=== PATIENT | female | born 1985 | race Caucasian/White ===

== ENCOUNTER → 2021-03-14 00:17 | Outpatient (CLI) | payer OTHER, SELFPAY ==
[2021-03-14 18:07] LABS: SARS-CoV-2 RNA PCR Negative
== END ==
PROVIDERS: Visit Provider Obstetrics & Gynecology
DX: Z01.812 Encounter for preprocedural laboratory examination (principal); Z20.822 Contact with and (suspected) exposure to COVID-19
CPT/HCPCS: C9803; U0003; U0005

== ENCOUNTER 2021-03-16 01:57 | Day surgery (SDC) | payer OTHER, SELFPAY ==
[2021-03-06 14:13] VITALS: BMI 32.8
[2021-03-16 11:00] VITALS: BP 158/90; PULSE 97; RESP 16; TEMP 36.8; O2SAT 100
[2021-03-16] MEDS: LACTATED RINGERS 1,000 ML 30 ML IV CONT (11:15)
[2021-03-16] MEDS: ACETAMINOPHEN 500 MG TABLET 1000 MG PO (11:16)
[2021-03-16] MEDS: KETOROLAC 15 MG/ML VIAL (*BKC) IV PUSH (11:16)
[2021-03-16] MEDS: SCOPOLAMINE 1.5 MG PATCH TRANSDERM (11:21)
--- NOTE | 2021-03-16 11:39 | P.PNAN_ITS ---
Anes - Initial Pre Proc Eval Procedure: Operation Date: 03/16/21 12:00 Proposed Procedures p Laparoscopic Bilateral Tubal Ligation - Shantel Babcock MD s Hysteroscopy with Endometrial Ablation with Usha - Shantel Babcock MD Date/Time: 03/16/21 11:39 Surgeon: Shantel Babcock MD Pre Op Diagnosis: desired sterilization,abnormal uterine bleeding Patient Data Age: 35 Gender: F Height: 1.7 m Weight: 93 kg Last Vital Signs Temp 36.8 C 03/16/21 11:00 Pulse 97 03/16/21 11:00 Resp 16 03/16/21 11:00 BP 158/90 H 03/16/21 11:00 Pulse Ox 100 03/16/21 11:00 Allergies Allergy/AdvReac Type Severity Reaction Status Date / Time No Known Allergies Allergy Verified 03/16/21 11:31 Home Medications Medication Instructions Recorded Confirmed Type norethindrone (contraceptive) 0.35 mg PO DAILY 03/06/21 03/16/21 History [Georgette] Patient hx anesthesia problems: none Family hx anesthesia problems: none Results Review: All pre-operative results and documents have been reviewed as part of the pre-operative evaluation. [facility] Past Medical History Medical History Hx of migraines Social History Social History Smoking status: Never smoker Alcohol intake: current Alcohol use details: COUPLE/MONTH Substance use: never Substance use type: does not use Living arrangements: with family Spiritual care concerns: No Anes - Eval Final PreProcedure Day of Procedure 03/16/21 11:39 Patient weight: obese Heart: regular rate and rhythm Lungs: clear to auscultation Airway: Mallampati scale class II Neurological: alert and oriented Last oral intake: >/= 8 hours ASA classification: II Emergent: no Anesthetic plan: proceed Anesthesia type and monitoring: general ETT and standard monitoring Results Review: All pre-operative results and documents have been reviewed as part of the pre-operative evaluation. Informed Consent: The patient's anesthetic plan and its attendant risks and benefits were discussed with the patient/family/POA. Questions were solicited and answers provided to the satisfaction of the patient/family/POA.
--- NOTE | 2021-03-16 12:08 | PM.HPGS ---
History of Present Illness History of Present Illness Consent: Risks, benefits, and alternatives have been discussed and questions answered. Patient agrees to proceed with procedure. Chief complaint: desired sterilization,abnormal uterine bleeding Narrative: Rik Landeros is a 35 year old female here for scheduled surgery. Has AUB and desires sterilization EMB benign. Risk/benefits discussed. Plan to proceed with laparoscopic tubal sterilization and endometrial ablation Review of Systems Review of Systems: All systems reviewed & are unremarkable except as noted in HPI and below Constitutional: Constitutional: Reports no additional constitutional complaints Eyes: Eyes: Reports no additional eye complaints ENT: Reports system reviewed and no additional complaints, except as documented and Reports Normal hearing present Cardiovascular: Cardiovascular: Reports no additional cardiovascular complaints Respiratory: Respiratory: Reports no additional respiratory complaints Gastrointestinal: Gastrointestinal: Reports no additional gastrointestinal complaints Genitourinary: Genitourinary: Reports no additional female genitourinary complaints Musculoskeletal: Musculoskeletal: Reports no additional musculoskeletal complaints Integumentary/Breasts: Skin/Breast: Reports system reviewed and no additional complaints, except as docu PMFSH Past Medical History Medical History Hx of migraines Social History Social History Smoking status: Never smoker Alcohol intake: current Alcohol use details: COUPLE/MONTH Substance use: never Substance use type: does not use Living arrangements: with family Spiritual care concerns: No Meds Home Medications and Allergies Home Medications Medication Instructions Recorded Confirmed Type norethindrone (contraceptive) 0.35 mg PO DAILY 03/06/21 03/16/21 History [Georgette] Allergies Allergy/AdvReac Type Severity Reaction Status Date / Time No Known Allergies Allergy Verified 03/16/21 11:31 Vital Signs Vital Signs - 24 hr 03/16/21 11:00 Temperature 36.8 C Pulse Rate 97 Respiratory Rate 16 Blood Pressure 158/90 H Pulse Oximetry 100 Exam Const: General: cooperative and healthy appearing HENMT: Head: normal to inspection Ears: hearing grossly normal bilaterally General nose exam: Normal external nose present Face and sinus: normal facial exam Eyes: General: appearance normal, both eyes and all related structures Neck: Neck: normal visual inspection Chest: Chest palpation & inspection: normal inspection of the chest Resp: Effort & Inspection: normal respiratory effort Cardio: Jugular venous distension: no JVD GI: Inspection: normal to inspection Skin: General skin exam: normal color Neuro: General: oriented to person, oriented to place and oriented to time Extrem: General: normal to inspection Psych: Appearance: grossly normal Assessment and Plan Additional Plan Risk/benefits discussed. Plan to proceed with laparoscopic tubal sterilization and endometrial ablation Post op appt 04/14/21 at 9am in [place]
--- NOTE | 2021-03-16 12:10 | WPDHPUPDATE1 ---
History and Physical Update Update Date/Time: 03/16/21 12:10 History and Physical has been reviewed, including an updated exam of the patient. There are NO changes in the patient's condition. Risks, benefits, and alternatives have been discussed and questions answered. Patient agrees to proceed with procedure.
--- NOTE | 2021-03-16 13:15 | W.PM.PROC2 ---
Procedure Note - Detailed Date of Procedure 03/16/21 Pre-op Diagnosis desired sterilization,abnormal uterine bleeding Post-op Diagnosis other (desired sterilization, abnormal uterine bleeding, right ovarian cyst, pedunculated postererior fibroid) Procedure Performed Laparoscopic bilateral tubal fulguration with bipolar cautery for sterilization Hysteroscopy D&C with endometrial ablation with Usha Right ovarian cystotomy Surgeon Shantel Babcock MD Anesthesia general Indications desired sterilization, abnormal uterine bleeding resistent to NSAIDs Findings Thickened polypoid tissue within the endometrium Posterior fibroid Description of Procedure The patient was taken to the operating room where general anesthesia was found to be adequate. She was then prepared and draped in the dorsal lithotomy position in [facility]. Hensley catheter placed. A speculum was used to visualize the cervix and single toothed tenaculum placed on the anterior lip of the cervix. The uterus sounded to 8cm and cervix measured 4cm. The [employer] uterine manipulator was placed in the cervix and affixed to the tenaculum. Attention was turned to the umbilucus which was injected with 1% lidocaine with epinephrine. An incision was made with a scalpel and Veres needle used for entry into the abdomen. The pneumoperitoneum was created with CO2. Insufflated to 15mmHg. The 5mm port was placed within the incision with optical entry. The abdomen was free of adhesions. The patient was placed in Trendelenberg. The uterus was elevated and found to have a posterior wall fibroid pedunculated. The ovaries were normal and a simple right ovarian cyst noted. Small amount of free fluid noted in the pelvis. The tubes were normal. A suprapubic port placed by injecting the skin with 1% lidocaine with epinephrine, incising the skin with a scalpel and placing the port with direct visualization. The left fallopian tube was grasp and cauterized with bipolar cautery along the mid portion of the tube for approximately 2cm length. The paratubal tissue was also cauterized. Images taken. Similarly the right tube was cauterized with the Kleppenger. Once both tubes were cauterized the right ovarian cyst was seen and cauterized the right ovarian cyst and pulled out the cyst tissue visible. Bipolar cautery was used at edges for hemostasis. The procedure was complete so pneumoperitoneum was released and port sites removed. The skin was closed with 4-0 monocryl in interrupted fashion and sterile dressings placed. Attention was turned to the vagina where the speculum was again reinserted and Robertson manipulator removed. 5mm Hysteroscope with 0.9% sterile saline used for hydrodistension of the uterine cavity. The cavity appeared to have fluffy tissue and polypoid appearing tissue. Regularly shaped uterine cavity. A sharp currette was used to remove endometrial tissue and then the Usha device prepared. It was inserted and set to 4cm cavity length and deployed with 3cm cavity width. Cavity assessment passed and ablation began and completed fully without error. The usha was removed and hysteroscope again passed noting good ablation throughout the uterine cavity. The hysteroscope removed and tenaculum removed. Tenaculum sites were hemostatic so hensley catherer was removed. the procedure was complete and all sponge/lap and needle counts were correct. Estimated Blood Loss 5 Drains No Packing No Pathology yes (endometrial currettings) Complications No immediate complications Condition stable Disposition PACU
[2021-03-16 13:18] VITALS: BP 99/62; PULSE 90; RESP 14; TEMP 36.2; O2SAT 100
[2021-03-16 13:30] VITALS: BP 103/59; PULSE 84; RESP 18; O2SAT 100
[2021-03-16 13:45] VITALS: BP 116/70; PULSE 72; RESP 18; O2SAT 100
[2021-03-16 13:48] VITALS: BP 116/63; PULSE 54; RESP 18
[2021-03-16 14:15] VITALS: BP 117/71; PULSE 62; RESP 16
== END 2021-03-16 14:40 | disposition home or self-care (01) ==
PROVIDERS: Visit Provider Obstetrics & Gynecology
PROC: (CPT 58671; principal; 2021-03-16 12:00)
PROC: 0U5B8ZZ Destruction of Endometrium, Via Natural or Artificial Opening Endoscopic (ICD-10-PCS; CPT 58563; 2021-03-16 12:00)
DX: Z30.2 Encounter for sterilization (principal); D25.9 Leiomyoma of uterus, unspecified; N93.9 Abnormal uterine and vaginal bleeding, unspecified; N83.201 Unspecified ovarian cyst, right side; E66.9 Obesity, unspecified; Z68.32 Body mass index [BMI] 32.0-32.9, adult
CPT/HCPCS: 58563; 58670; 58662; 88305; A9270; J1100; J1885; J2250; J2270; J2370; J2405; J2704; J7030; J7120